=== PATIENT | female | born 1970 | race Caucasian/White ===

== ENCOUNTER 2020-09-17 05:10 | Emergency (ER) | payer SELFPAY ==
[~2020-09-17] VITALS: Ht 157.5 cm; Wt 50.0 kg
[2020-09-17 05:13] VITALS: BP 148/77
== END 2020-09-17 07:13 | disposition home or self-care (01) ==
LOC: ER 05:10
DX: T16.2XXA Foreign body in left ear, initial encounter (principal); X58.XXXA Exposure to other specified factors, initial encounter; Y93.89 Activity, other specified; Y92.89 Other specified places as the place of occurrence of the external cause
CPT/HCPCS: 99281